=== PATIENT | male | born 1995 | race Two or more races ===

== ENCOUNTER 2022-07-09 17:49 | Observation (INO) ==
--- NOTE | 2022-07-09 18:12 | DR.ABDMALE ---
HPI Time seen Time Seen by Provider: 07/09/22 18:12 HPI comment HPI Comment: PATIENT IS 26YR OLD MALE IN ER WITH AND REPRESENTATIVE PHLEBOT[facility] SERVICES FOR [facility] COMPLAINING HE HAS RLQ ABDOMINAL PAIN THAT STARTED TODAY. HE HAS LOW GRADE FEVER IN ER. NO NAUSEA, VOMITING OR DIARRHEA. DENIES DYSURIA. HAVING 7/10 PAIN. NO PREVIOUS SURGERY REPORTED. Complaint Chief Complaint Doctors Comments: RLQ ABDOMINAL PAIN THAT STARTED TODAY. SPEAKING TO PATIENT VIA REPRESENTATIVE [facility] FOR [facility]. COVID-19 Coronavirus risk:travel/contact w/high risk person: No Has patient experienced Coronavirus symptoms: No Reviewed Nurses Notes Review: Yes Source History provided by:: PATIENT AND VIA REPRESENTATIVE PHLEBOTOMY SERVICES. Mode of arrival Mode of Arrival: Ambulatory Timing Came on: Suddenly Duration Duration: Constant Duration: Hours Location Location: RLQ Severity Severity: Moderate Quality Quality: Cramping and Sharp Context Onset: Suddenly and At Rest History of: None Modifying factors Worsening Factors: Nothing Improving Factors: Nothing Associated signs and symptoms Associated Signs and Symptoms: None PMH Travel Risk Coronavirus risk:travel/contact w/high risk person: No Has patient experienced Coronavirus symptoms: No ROS Review of Systems Constitutional: See HPI and Fever; negative Weakness or Fatigue Eyes: No Symptoms Reported and See HPI ENTM: No Symptoms Reported and See HPI; negative Nose Discharge or Nose Congestion Respiratoy: No Symptoms Reported and See HPI; negative Moist Cough or Short of Breath Cardiovascular: No Symptoms Reported and See HPI; negative Chest Pain Gastrointestinal/Abdominal: No Symptoms Reported, See HPI, Abdominal Pain and Nausea; negative Diarrhea or Vomiting Genitourinary: No Symptoms Reported and See HPI; negative Dysuria Neurological: No Symptoms Reported; negative Headache, Weakness or Dizziness Musculoskeletal: No Symptoms Reported and See HPI; negative Back Pain Integumentary: No Symptoms Reported and See HPI Hematologic/Lymphatic: No Symptoms Reported and See HPI; negative Easy Bleeding, Easy Bruising or Swollen Glands Endocrine: No Symptoms Reported and See HPI; negative Increased Thirst or Increased Urine Psychiatric: No Symptoms Reported and See HPI All Other Systems: Reviewed and Negative PE Vital Signs Vital Signs: Temp Pulse Resp BP Pulse Ox O2 Del Method 07/09/22 18:12 100.3 F H 111 H 20 130/71 98 Room Air General Limitations: Language Barrier General Appearance: Alert and In No Apparent Distress Head Head Exam: Normal Inspection Eyes Eye exam: Normal Appearance; negative Scleral Icterus or Conjunctival Injection ENT ENT Exam: Normal Exam, Normal Oropharynx, Normal External Ear Exam and TM's Normal Bilaterally Neck Neck Exam: Normal Inspection and Trachea Midline; negative Tenderness Chest Chest Inspection: Normal Inspection and Symmetric Chest Wall Rise; negative Tenderness Respiratory Respiratory Exam: Normal Lung Sounds Bilat; negative Accessory Muscle Use, Chest Wall Tenderness or Respiratory Distress Respiratory Exam: Bilateral: Clear to Auscultation Cardiovascular Cardiovascular Exam: Regular Rate, Normal Rhythm and Normal Heart Sounds; negative Systolic Murmur or Diastolic Murmur Abdominal Exam Abdominal Exam: Normal Inspection, Normal Bowel Sounds, Soft, Tenderness and Rebound Abdominal Tenderness: RLQ and Moderate Rectal Rectal Exam: Deferred Back Back Exam: Vertebral Tenderness; negative (R) CVA Tenderness or (L) CVA Tenderness Extremeties Extremities Exam: Normal Inspection and Normal Capillary Refill Exam: Male: Deferred Neurologic Neurological Exam: Alert and Oriented X3; negative Motor Sensory Deficit Psychiatric Psychiatric Exam: Normal Affect and Normal Mood Skin Skin Exam: Intact MDM Differential Diagnosis Differential Diagnosis: Appendicitis, Bowel Obstruction, Pancreatitis, Urinary tract infection and Urolithiasis COURSE Treatment Treatment: SEE ORDERS DONE WHILE PATIENT WAS IN ER. DISCUSSED LABS AND CT REPORT. 26YR OLD MALE IN ER WITH ACUTE APPENDICITIS ADMITTED TO HOSPITAL FOR FURTHER MANAGEMENT. Consultation Consultation Comments: DISCUSSED PATIENT WITH DR. VILLAGRAN, SURGEON. MEDICINE TO ADMIT PATIENT. DR. VALDIVIA WILL ADMIT PATIENT. Education/Counseling Education/Counseling: Patient and Family (AND REPRESENTATIVE PHLEBOT[facility]Y SERVICES.) Educated On: Treatment and Diagnosis [facility] Labs Reviewed Laboratory Results Reviewed?: Yes Result Diagrams: 07/09/22 17:59 07/09/22 17:59 Laboratory: WBC 18.7 X10^3/uL (3.6-10.0) H 07/09/22 17:59 RBC 5.54 X10^6/uL (4.7-6.0) 07/09/22 17:59 Hgb 16.2 g/dL (13.5-18.0) 07/09/22 17:59 Hct 47.6 % (42.0-54.0) 07/09/22 17:59 MCV 85.9 fL (80.0-100.0) 07/09/22 17:59 MCH 29.2 pg (27.0-34.0) 07/09/22 17:59 MCHC 34.0 g/dL (33.0-35.0) 07/09/22 17:59 RDW 13.2 % (11.6-16.5) 07/09/22 17:59 Plt Count 301 X10^3/uL (150.0-450.0) 07/09/22 17:59 MPV 7.7 fL (7.4-11.0) 07/09/22 17:59 Neut % (Auto) 85.6 % (42.0-75.0) H 07/09/22 17:59 Lymph % (Auto) 4.9 % (21.0-51.0) L 07/09/22 17:59 Bailey % (Auto) 9.1 % (0.0-13.0) 07/09/22 17:59 Eos % (Auto) 0.2 % (0.9-2.9) L 07/09/22 17:59 Baso % (Auto) 0.2 % (0.2-1.0) 07/09/22 17:59 Neut # (Auto) 16.0 x10^3/uL (2.2-4.8) H 07/09/22 17:59 Lymph # (Auto) 0.9 X10^3/uL (1.3-2.9) L 07/09/22 17:59 Bailey # (Auto) 1.7 x10^3/uL (0.3-0.8) H 07/09/22 17:59 Eos # (Auto) 0.0 x10^3/uL (0.0-0.2) 07/09/22 17:59 Baso # (Auto) 0.0 X10^3/uL (0.0-0.1) 07/09/22 17:59 Absolute Nucleated RBC 0.0 /100WBC 07/09/22 17:59 Sodium 138 mmol/L (136-145) 07/09/22 17:59 Corrected Sodium TNP 07/09/22 17:59 Potassium 3.7 mmol/L (3.5-5.1) 07/09/22 17:59 Chloride 99 mmol/L (98-107) 07/09/22 17:59 Carbon Dioxide 29.4 mmol/L (21-32) 07/09/22 17:59 BUN 17 mg/dL (7-18) 07/09/22 17:59 Creatinine 1.03 mg/dL (0.70-1.30) 07/09/22 17:59 Est GFR (MDRD) Af Amer > 60 (>60) 07/09/22 17:59 Est GFR (MDRD) Non-Af > 60 (>60) 07/09/22 17:59 Glucose 110 mg/dL (65-99) H 07/09/22 17:59 Calcium 8.7 mg/dL (8.5-10.1) 07/09/22 17:59 Corrected Calcium TNP 07/09/22 17:59 Total Bilirubin 0.80 mg/dL (0.2-1.0) 07/09/22 17:59 AST 19 Units/L (15-37) 07/09/22 17:59 ALT 28 Units/L (12-78) 07/09/22 17:59 Alkaline Phosphatase 89 Units/L (46-116) 07/09/22 17:59 Total Protein 8.7 g/dL (6.4-8.2) H 07/09/22 17:59 Albumin 4.6 g/dL (3.4-5.0) 07/09/22 17:59 Globulin 4.1 g/dL (2.5-4.5) 07/09/22 17:59 Albumin/Globulin Ratio 1.1 Ratio (1.1-2.1) 07/09/22 17:59 Amylase 57 Units/L (25-115) 07/09/22 17:59 Lipase 43 Units/L (73-393) L 07/09/22 17:59 Specimen Type Clean catch urine 07/09/22 18:26 Urine Color Yellow (YELLOW) 07/09/22 18:26 Urine Appearance Slightly hazy (CLEAR) 07/09/22 18:26 Urine pH 8.0 (5.0 - 8.0) 07/09/22 18:26 Ur Specific [place] 1.010 (1.000-1.030) 07/09/22 18:26 Urine Protein Negative (NEGATIVE) 07/09/22 18:26 Urine Glucose (UA) Negative (NEGATIVE) 07/09/22 18:26 Urine Ketones 2+ (NEGATIVE) 07/09/22 18:26 Urine Blood Negative (NEGATIVE) 07/09/22 18:26 Urine Nitrite Negative (NEGATIVE) 07/09/22 18:26 Urine Bilirubin Negative (NEGATIVE) 07/09/22 18:26 Urine Urobilinogen 2+ (NORMAL) 07/09/22 18:26 Ur Leukocyte Esterase 1+ (NEGATIVE) 07/09/22 18:26 Urine RBC 0-2 /HPF (0-3) 07/09/22 18:26 Urine WBC 3-5 /HPF (0-5) 07/09/22 18:26 Ur Squamous Epith Cells Rare /HPF (NEGATIVE) 07/09/22 18:26 Amorphous Sediment 4+ /HPF (NEGATIVE) 07/09/22 18:26 Urine Bacteria Trace /HPF (NEGATIVE) 07/09/22 18:26 Ur Culture Indicated? No/not indicated 07/09/22 18:26 Opioid Opioid Risk Tool Age (Marco box if 16-45): Yes History of Preadolescent Sexual Abuse: No Total: 1 Total Score Risk Category: Low Risk Copyright: Jhonatan COLVIN predicting aberrant behaviors Discharge Plan Diagnosis Discharge Problem: Acute appendicitis, Abdominal pain, RLQ Discharge Plan Patient Disposition: 09 ADMITTED INPATIENT Condition: Stable Orders to Discharge Patient Discharge Orders: Transfer (Routine); Ordered 07/09/22 Ordered By: ALCON HENDRICKS
[2022-07-09 18:18] LABS: BASOPHILS % (AUTO) 0.2 % (0.2-1.0); EOSINOPHILS % (AUTO) 0.2 % (0.9-2.9); HEMATOCRIT 47.6 % (42.0-54.0); HEMOGLOBIN 16.2 g/dL (13.5-18.0); LYMPHOCYTES # (AUTO) 0.9 X10^3/uL (1.3-2.9); LYMPHOCYTES % (AUTO) 4.9 % (21.0-51.0); MEAN CORPUSCULAR HEMOGLOBIN 29.2 pg (27.0-34.0); MEAN CORPUSCULAR VOLUME 85.9 fL (80.0-100.0); MEAN PLATELET VOLUME 7.7 fL (7.4-11.0); MONOCYTES # (AUTO) 1.7 x10^3/uL (0.3-0.8); MONOCYTES % (AUTO) 9.1 % (0.0-13.0); NEUTROPHILS % (AUTO) 85.6 % (42.0-75.0); RED BLOOD COUNT 5.54 X10^6/uL (4.7-6.0); RED CELL DISTRIBUTION WIDTH 13.2 % (11.6-16.5); WHITE BLOOD COUNT 18.7 X10^3/uL (3.6-10.0)
[2022-07-09 18:35] LABS: ALANINE AMINOTRANSFERASE 28 Units/L (12-78); ALBUMIN 4.6 g/dL (3.4-5.0); ALKALINE PHOSPHATASE 89 Units/L (46-116); AMYLASE 57 Units/L (25-115); ASPARTATE AMINO TRANSFERASE 19 Units/L (15-37); BLOOD UREA NITROGEN 17 mg/dL (7-18); CALCIUM 8.7 mg/dL (8.5-10.1); CARBON DIOXIDE 29.4 mmol/L (21-32); CHLORIDE 99 mmol/L (98-107); CREATININE 1.03 mg/dL (0.70-1.30); LIPASE 43 Units/L (73-393); SODIUM 138 mmol/L (136-145); TOTAL PROTEIN 8.7 g/dL (6.4-8.2); eGFR NON BLACK RACES > 60 (>60)
[2022-07-09 18:37] LABS: BILIRUBIN,URINE NEGATIVE (NEGATIVE); BLOOD/HEMOGLOBIN,URINE NEGATIVE (NEGATIVE); GLUCOSE, URINE NEGATIVE (NEGATIVE); KETONES,URINE 2+ (NEGATIVE); LEUKOCYTE ESTERASE ,URINE 1+ (NEGATIVE); NITRITES,URINE NEGATIVE (NEGATIVE); PROTEIN,URINE NEGATIVE (NEGATIVE); UROBILINOGEN,URINE 2+ (NORMAL)
[2022-07-09 18:44] LABS: APPEARANCE,URINE SLIGHTLY HAZY (CLEAR); COLOR,URINE YELLOW (YELLOW)
[2022-07-09 18:45] LABS: BACTERIA,URINE TRACE /HPF (NEGATIVE); RBC,URINE 0-2 /HPF (0-3); SQUAMOUS EPITHELIAL CELL,UR RARE /HPF (NEGATIVE)
[2022-07-09] MEDS ORDERED: NS 100 ML IV 100 ML ONE ×3 (19:41→20:30)
[2022-07-09 20:16] VITALS: BMI 23.0
--- NOTE | 2022-07-09 20:18 | CT ---
HISTORYRight lower quadrant painSTUDYABDOMEN/PELVIS WITH CONCOMPARISONNoneTECHNIQUEAxial CT images of the abdomen and pelvis were obtained after the administration of IV contrast, 100 mL Omnipaque, and reformatted into coronal and sagittal planes for further evaluation. Enteric contrast was administered.Radiation dose: 392.10 mGy-cm total DLPFINDINGSLung bases are clear.Stomach appears normal.Solid visceral organs of the upper abdomen are unremarkable.Gallbladder appears normal with no biliary dilatation.Homogeneous enhancement of the kidneys without hydronephrosis or hydroureter.Unremarkable appearance of the urinary bladder.Imaged reproductive structures are unremarkable.Unremarkable appearance of the large and small bowel.Small appendicoliths in the proximal and distal appendiceal lumen with low-attenuation luminal contents. Appendix is widened up to 10 mm with mild surrounding edema.No pneumoperitoneum.No significant fluid collection.No adenopathy.No acute osseous abnormality.IMPRESSIONSmall appendicoliths in the proximal and distal appendiceal lumen with low-attenuation luminal contents. Appendix is widened up to 10 mm with mild surrounding edema. Findings are concerning for acute appendicitis.Electronically signed by: Shane Angulo (Jul 09, 2022 20:16:14)
[2022-07-09] MEDS ORDERED: ANCEF VIAL 1 GRAM IVP ONE (20:28)
[2022-07-09] MEDS ORDERED: ANCEF VIAL 1 GRAM ONE (20:30)
[2022-07-09] MEDS ORDERED: NS 1,000 ML IV 1,000 ML ONE (20:30)
[2022-07-09] MEDS: NS 1,000 ML IV 1,000 ML IV SCH (20:38)
[2022-07-10] MEDS: NS 1,000 ML IV 1,000 ML IV SCH ×3 (05:11→21:38)
[2022-07-10] MEDS ORDERED: ANCEF VIAL 1 GRAM IVP SCH (06:00)
[2022-07-10 06:01] LABS: BASOPHILS # (AUTO) 0.1 X10^3/uL (0.0-0.1); BASOPHILS % (AUTO) 0.5 % (0.2-1.0); EOSINOPHILS % (AUTO) 0.3 % (0.9-2.9); HEMATOCRIT 41.6 % (42.0-54.0); HEMOGLOBIN 14.4 g/dL (13.5-18.0); LYMPHOCYTES # (AUTO) 1.5 X10^3/uL (1.3-2.9); LYMPHOCYTES % (AUTO) 8.8 % (21.0-51.0); MEAN CORPUSCULAR HEMOGLOBIN 29.4 pg (27.0-34.0); MEAN CORPUSCULAR HGB CONC 34.5 g/dL (33.0-35.0); MEAN CORPUSCULAR VOLUME 85.1 fL (80.0-100.0); MEAN PLATELET VOLUME 7.5 fL (7.4-11.0); MONOCYTES # (AUTO) 1.4 x10^3/uL (0.3-0.8); MONOCYTES % (AUTO) 8.7 % (0.0-13.0); NEUTROPHILS # (AUTO) 13.7 x10^3/uL (2.2-4.8); NEUTROPHILS % (AUTO) 81.7 % (42.0-75.0); RED BLOOD COUNT 4.89 X10^6/uL (4.7-6.0); RED CELL DISTRIBUTION WIDTH 13.4 % (11.6-16.5); WHITE BLOOD COUNT 16.7 X10^3/uL (3.6-10.0)
--- NOTE | 2022-07-10 06:08 | RAD ---
HISTORYPREOP-ACUTE APPENDICITIS Relevant Clinical InformationSTUDYCHEST, 1 VIEWCOMPARISONNoneFINDINGSThe trachea is midline. The cardiac silhouette is unremarkable. The lungs are clear without focal infiltrate or effusion. The bony thorax is unremarkable.IMPRESSIONNormal chest.Electronically signed by: Hugh Mendoza (Jul 10, 2022 06:07:02)
[2022-07-10 06:21] LABS: ALANINE AMINOTRANSFERASE 19 Units/L (12-78); ALBUMIN 3.6 g/dL (3.4-5.0); ALKALINE PHOSPHATASE 73 Units/L (46-116); ASPARTATE AMINO TRANSFERASE 16 Units/L (15-37); BLOOD UREA NITROGEN 11 mg/dL (7-18); CALCIUM 7.8 mg/dL (8.5-10.1); CHLORIDE 100 mmol/L (98-107); SODIUM 137 mmol/L (136-145); TOTAL PROTEIN 7.5 g/dL (6.4-8.2); eGFR NON BLACK RACES > 60 (>60)
[2022-07-10] MEDS ORDERED: DIPRIVAN VIAL 20 ML ONE (10:38)
[2022-07-10] MEDS ORDERED: OFIRMEV IV 1000 MG VIAL 1,000 MG/100 ML VIAL IV ONE (10:38)
[2022-07-10] MEDS ORDERED: BRIDION ONE (10:39)
[2022-07-10] MEDS ORDERED: ZEMURON 100 MG VIAL ONE (10:39)
[2022-07-10] MEDS ORDERED: XYLOCAINE 2 % (PLAIN) ONE (10:39)
[2022-07-10] MEDS ORDERED: ZOFRAN INJ 4 MG VIAL ONE (10:40)
[2022-07-10] MEDS ORDERED: PEPCID 20 MG VIAL ONE (10:40)
[2022-07-10] MEDS ORDERED: ROBINUL ONE (10:41)
[2022-07-10] MEDS ORDERED: FENTANYL VIAL INJ 100 mcg ONE (10:43)
[2022-07-10] MEDS ORDERED: VERSED ONE (10:43)
[2022-07-10] MEDS ORDERED: NS 100 ML IV 100 ML ONE (12:13)
[2022-07-10] MEDS ORDERED: NS 1,000 ML IV 1,000 ML ONE (12:13)
[2022-07-10] MEDS ORDERED: ANCEF VIAL 1 GRAM ONE (12:13)
[2022-07-10] MEDS ORDERED: KETAMINE HCL ONE (12:42)
[2022-07-10] MEDS ORDERED: DECADRON INJ ONE (12:59)
[2022-07-10] MEDS ORDERED: TORADOL 30 MG VIAL ONE (13:24)
[2022-07-10] MEDS ORDERED: BACTROBAN TOPICAL OINT ONE (13:26)
[2022-07-10] MEDS ORDERED: BENADRYL INJ 50 MG VIAL IVP PRN (13:28)
[2022-07-10] MEDS ORDERED: PHENERGAN INJ 25 MG IM PRN (13:28)
[2022-07-10] MEDS ORDERED: BARHEMSYS INJ IVP PRN (13:28)
[2022-07-10] MEDS ORDERED: DILAUDID INJ IVP PRN (13:28)
[2022-07-10] MEDS ORDERED: S2 RACEMIC EPINEPHRINE NEB ONE (14:19)
[2022-07-10] MEDS: ZOSYN VIAL 3.375 GRAMS 3.375 G in NS 100 ML IV 100 ML IV SCH ×2 (15:15→21:38)
[2022-07-10] MEDS: DILAUDID INJ IVP PRN (21:37)
[2022-07-11] MEDS: ZOSYN VIAL 3.375 GRAMS 3.375 G in NS 100 ML IV 100 ML IV SCH (05:00)
[2022-07-11] MEDS: DILAUDID INJ IVP PRN ×2 (05:07→11:22)
[2022-07-11] MEDS: NS 1,000 ML IV 1,000 ML IV SCH (05:07)
[2022-07-11 05:26] LABS: BASOPHILS # (AUTO) 0.1 X10^3/uL (0.0-0.1); BASOPHILS % (AUTO) 0.5 % (0.2-1.0); HEMATOCRIT 39.2 % (42.0-54.0); HEMOGLOBIN 13.3 g/dL (13.5-18.0); LYMPHOCYTES # (AUTO) 0.8 X10^3/uL (1.3-2.9); LYMPHOCYTES % (AUTO) 6.9 % (21.0-51.0); MEAN CORPUSCULAR HEMOGLOBIN 28.9 pg (27.0-34.0); MEAN CORPUSCULAR HGB CONC 33.9 g/dL (33.0-35.0); MEAN CORPUSCULAR VOLUME 85.4 fL (80.0-100.0); MEAN PLATELET VOLUME 7.9 fL (7.4-11.0); MONOCYTES # (AUTO) 0.6 x10^3/uL (0.3-0.8); MONOCYTES % (AUTO) 5.7 % (0.0-13.0); NEUTROPHILS # (AUTO) 9.8 x10^3/uL (2.2-4.8); NEUTROPHILS % (AUTO) 86.9 % (42.0-75.0); RED BLOOD COUNT 4.59 X10^6/uL (4.7-6.0); WHITE BLOOD COUNT 11.3 X10^3/uL (3.6-10.0)
[2022-07-11 05:40] LABS: ALANINE AMINOTRANSFERASE 16 Units/L (12-78); ALBUMIN 2.9 g/dL (3.4-5.0); ALKALINE PHOSPHATASE 60 Units/L (46-116); ASPARTATE AMINO TRANSFERASE 11 Units/L (15-37); BLOOD UREA NITROGEN 9 mg/dL (7-18); CALCIUM 7.7 mg/dL (8.5-10.1); CARBON DIOXIDE 28.1 mmol/L (21-32); CHLORIDE 103 mmol/L (98-107); COR CA(FOR HYPOALB) 8.6 mg/dL (8.5-10.1); COR NA(FOR HYPERGLY) 138 mmol/L (136-145); CREATININE 0.82 mg/dL (0.70-1.30); SODIUM 138 mmol/L (136-145); TOTAL PROTEIN 6.5 g/dL (6.4-8.2); eGFR NON BLACK RACES > 60 (>60)
[2022-07-11 12:53] VITALS: BP 102/56
== END 2022-07-11 13:00 | disposition home or self-care (01) ==
LOC: ER 17:49 → MED/SURG 17:49
PROVIDERS: ADMIT Family Medicine; ATTEND Obstetrics & Gynecology Obstetrics
PROC: APPYLAP (ICD-10-PCS; 2022-07-10 12:15)
DX: K35.890 Other acute appendicitis without perforation or gangrene; R10.11 Right upper quadrant pain; Z20.822 Contact with and (suspected) exposure to COVID-19